=== PATIENT | female | born 1940 | race Caucasian/White ===

== ENCOUNTER 2019-11-29 14:30 | Emergency (ER) | payer MEDICARE ==
[~2019-11-29] VITALS: Ht 167.6 cm; Wt 88.2 kg
[~2019-11-29 14:30] MED LIST: LEVO175T2 PO
[2019-11-29] MEDS ORDERED: SODIUM CHLORIDE FLUSH 10ML SYR IVF ONE ×2 (15:30→16:00)
--- NOTE | 2019-11-29 15:35 | NUR ---
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
[2019-11-29] MEDS ORDERED: SODIUM CHLORIDE 0.9% 1,000 ML IV ONE (15:50)
[2019-11-29] MEDS ORDERED: ONDANSETRON 2MG/ML, 2ML IVPush ONE (16:00)
[2019-11-29] MEDS ORDERED: KETOROLAC 30 MG/1 ML IVPush ONE (16:00)
--- NOTE | 2019-11-29 16:32 | NUR ---
PT IN RAD AT THIS TIME.
[2019-11-29] MEDS ORDERED: KETOROLAC 30 MG/1 ML ONE (16:41)
[2019-11-29] MEDS ORDERED: MORPHINE SULFATE 4 MG/ML, 1ML ONE ×2 (16:41→18:15)
[2019-11-29] MEDS ORDERED: ONDANSETRON 2MG/ML, 2ML ONE (16:41)
[2019-11-29 16:45] LABS: BASOPHILS # (AUTO) 0.03 x10^3/uL (0-0.1); BASOPHILS % (AUTO) 0 % (0-1); EOSINOPHILS # (AUTO) 0.02 x10^3/uL (0-0.4); EOSINOPHILS % (AUTO) 0 % (1-7); LYMPHOCYTES # (AUTO) 1.35 x10^3/uL (1-3.4); LYMPHOCYTES % (AUTO) 15 % (22-44); MD NO; MEAN CORPUSCULAR HEMOGLOBIN 26.1 pg (27.0-34.8); MEAN CORPUSCULAR HGB CONC 31.1 g/dL (32.4-35.8); MEAN PLATELET VOLUME 8.7 fL (7.4-10.4); MONOCYTES # (AUTO) 0.47 x10^3/uL (0.2-0.8); MONOCYTES % (AUTO) 5 % (2-9); NEUTROPHILS # (AUTO) 7.31 x10^3/uL (1.8-6.8); NEUTROPHILS % (AUTO) 80 % (42-75); PLATELET COUNT 278 x10^3/uL (130-400); RED CELL DISTRIBUTION WIDTH 17.1 % (9.6-15.2)
[2019-11-29] MEDS ORDERED: METO25TA35 PO (16:50)
[2019-11-29] MEDS: MORPHINE SULFATE 4 MG/ML, 1ML IVPush PRN ×2 (16:52→18:18)
[2019-11-29 16:56] LABS: ALBUMIN 3.5 g/dL (3.4-5.0); ANION GAP 6 mmol/L (5-15); CALCIUM 8.7 mg/dL (8.5-10.1); CHLORIDE 108 mmol/L (98-107)
[2019-11-29 17:00] LABS: ALANINE AMINOTRANSFERASE 15 U/L (12-78); ALKALINE PHOSPHATASE 96 U/L (45-117); BILIRUBIN,TOTAL 0.6 mg/dL (0.2-1.0); CREATININE 0.52 mg/dL (0.55-1.02)
[2019-11-29 17:47] LABS: MICROSCOPIC AUTO
[2019-11-29 18:18] VITALS: BP 149/53
--- NOTE | 2019-11-29 18:19 | NUR ---
MEDICATED PER MAR FOR PAIN, IVF INFUSING. VSS.
== END 2019-11-29 18:54 | disposition home or self-care (01) ==
LOC: ED 18:48
DX: N20.1 Calculus of ureter (principal); R31.9 Hematuria, unspecified; K21.9 Gastro-esophageal reflux disease without esophagitis; I10 Essential (primary) hypertension; E11.9 Type 2 diabetes mellitus without complications; Z90.710 Acquired absence of both cervix and uterus; Z90.89 Acquired absence of other organs; Z88.2 Allergy status to sulfonamides; Z88.1 Allergy status to other antibiotic agents
CPT/HCPCS: 36415; 74176; 80053; 81001; 83690; 85025; 87086; 96361; 96374; 96375; 96376; 99285; J1885; J2270; J2405; J7030